=== PATIENT | male | born 2000 | race Caucasian/White ===

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

== ENCOUNTER → 2020-10-06 | Outpatient (CLI) | payer OTHER ==
--- NOTE | 2020-10-07 08:31 | MR ---
MRI CERVICAL SPINE: CLINICAL HISTORY: Headache with neck pain at least 8 months into right arm. TECHNIQUE: Multiplanar, multisequence imaging of the cervical spine is performed without and with IV contrast, 9.5 cc of gadolinium was given intravenously. COMPARISON: None. FINDINGS: Slight motion artifact degradation is present. Sagittal images of the cervical spine show t he craniocervical junction to appear within normal limits. The cervical and upper thoracic spinal co rd is normal in course, caliber, and signal. Vertebral alignment is anatomic. The vertebral body an d intravertebral disk heights are normal. The bone marrow signal intensity is within normal limits. No suspicious postcontrast enhancement is seen. Axial images show there is no significant focal disk disease, spinal canal stenosis, neural foraminal narrowing, or spinal cord compromise at any cervical level. IMPRESSION: Negative MRI of the cervical spine, no significant abnormality is seen to account for raeann rony's clinical symptoms.
== END | disposition home or self-care (01) ==
LOC: RADMRIMAIN 18:47
PROVIDERS: ATTEND Nurse Practitioner Adult Health
DX: M54.12 Radiculopathy, cervical region (principal)
CPT/HCPCS: 72156; A9585

== ENCOUNTER 2021-10-16 05:10 | Emergency (ER) | payer OTHER ==
[2021-10-16] MEDS ORDERED: ONDANSETRON 4 MG/2 ML VIAL IVP STA (05:25)
[2021-10-16] MEDS ORDERED: SODIUM CHLORIDE 0.9% 1,000 ML IV STA ×2 (05:25)
[2021-10-16] MEDS ORDERED: ACETAMINOPHEN IV (For NPO) 1,000 MG in EMPTY BAG 1 BAG IVPB STA (05:27)
[2021-10-16] MEDS ORDERED: KETOROLAC 15 MG/ML 1 ML VIAL IVP STA (05:27)
--- NOTE | 2021-10-16 05:29 | ED ---
Nausea/Vomiting/Diarrhea HPI - General Chief complaint: Nausea/Vomiting/Diarrhea Stated complaint: Vomiting Time Seen by Provider: 10/16/21 05:25 Source: patient, family, RN notes reviewed, old records reviewed Mode of arrival: ambulatory Limitations: no limitations - History of Present Illness Initial comments: This is a 21-year-old male to the emergency room today. Patient Dese for evaluation regards to not feeling well persistent nausea vomiting severe sweating severe vomiting generalized pain bodyaches and pains. No travel history or sick contacts. Patient did work out yesterday but a normal workout started PG around midnight his been previously persistently since. Patient does not exhibit fever or known ulcer the family has been sick. Patient has had appendix surgery but no other complaints MD complaint: nausea, vomiting, abdominal pain, other (Diaphoresis) -: hour(s) Description of Vomiting: watery Associated Abdominal Pain: Yes Location: diffuse, RUQ, RLQ, flank Severity: moderate Severity scale (1-10): 6 Quality: stabbing, aching Consistency: constant Improves with: none Worsens with: none Context: history of abdominal surgery (appendix yrs ago) Associated Symptoms: loss of appetite, malaise, nausea/vomiting, weakness - Related Data Home Medications Medication Instructions Recorded Confirmed Venlafaxine HCl ER [Effexor Xr] 37.5 mg PO DAILY 10/16/21 10/16/21 Allergies Allergy/AdvReac Type Severity Reaction Status Date / Time No Known Allergies Allergy Verified 10/16/21 07:02 Review of Systems ROS Statement: Those systems with pertinent positive or pertinent negative responses have been documented in the HPI. ROS Other: All systems not noted in ROS Statement are negative. Past Medical History Past Medical History: No Reported History Additional Past Medical History / Comment(s): left clavicle fracture, right femur fracture, left wrist fracture, left ankle fracture; MONONUCLEOSIS SUMMER 2013 History of Any Multi-Drug Resistant Organisms: None Reported Past Surgical History: Appendectomy Additional Past Surgical History / Comment(s): open reduction left ankle fracture. Past Psychological History: Anxiety Past Alcohol Use History: None Reported Past Drug Use History: None Reported, Marijuana - Past Family History Mother Family Medical History: Hypertension General Exam - General Exam Comments Initial Comments: diaphoretic Limitations: no limitations General appearance: anxious Head exam: Present: atraumatic, normocephalic, normal inspection Eye exam: Present: normal appearance, PERRL, EOMI. Absent: scleral icterus, conjunctival injection, periorbital swelling ENT exam: Present: normal exam, mucous membranes moist Neck exam: Present: normal inspection. Absent: tenderness, meningismus, lymphadenopathy Respiratory exam: Present: normal lung sounds bilaterally. Absent: respiratory distress, wheezes, rales, rhonchi, stridor Cardiovascular Exam: Present: regular rate, normal rhythm, normal heart sounds. Absent: systolic murmur, diastolic murmur, rubs, gallop, clicks GI/Abdominal exam: Present: soft, normal bowel sounds. Absent: distended, tenderness, guarding, rebound, rigid Extremities exam: Present: normal inspection, full ROM, normal capillary refill. Absent: tenderness, pedal edema, joint swelling, calf tenderness Back exam: Present: normal inspection Neurological exam: Present: alert, oriented X3, CN II-XII intact Psychiatric exam: Present: normal affect, normal mood Skin exam: Present: warm, dry, intact, normal color. Absent: rash Course Vital Signs 10/16/21 10/16/21 10/16/21 05:11 06:04 06:16 Temperature 98.3 F Pulse Rate 83 66 Respiratory 20 16 Rate Blood Pressure 137/82 110/56 O2 Sat by Pulse 98 98 Oximetry - Reevaluation(s) Reevaluation #1: 10/16/21 05:29 Medical record is reviewed Medical Decision Making - Lab Data Result diagrams: 10/16/21 05:28 10/16/21 05:28 Lab Results 10/16/21 10/16/21 10/16/21 Range/Units 05:28 05:28 05:28 WBC 10.6 (3.8-10.6) k/uL RBC 4.81 (4.30-5.90) m/uL Hgb 16.0 (13.0-17.5) gm/dL Hct 47.1 (39.0-53.0) % MCV 97.9 (80.0-100.0) fL MCH 33.2 (25.0-35.0) pg MCHC 33.9 (31.0-37.0) g/dL RDW 12.5 (11.5-15.5) % Plt Count 224 (150-450) k/uL MPV 7.2 Neutrophils % 88 % Lymphocytes % 6 % Monocytes % 3 % Eosinophils % 2 % Basophils % 1 % Neutrophils # 9.3 H (1.3-7.7) k/uL Lymphocytes # 0.6 L (1.0-4.8) k/uL Monocytes # 0.4 (0-1.0) k/uL Eosinophils # 0.2 (0-0.7) k/uL Basophils # 0.1 (0-0.2) k/uL PT (9.0-12.0) sec INR (<1.2) APTT (22.0-30.0) sec Sodium 138 (137-145) mmol/L Potassium 3.9 (3.5-5.1) mmol/L Chloride 106 (98-107) mmol/L Carbon Dioxide 23 (22-30) mmol/L Anion Gap 9 mmol/L BUN 23 H (9-20) mg/dL Creatinine 1.03 (0.66-1.25) mg/dL Est GFR (CKD-EPI)AfAm >90 (>60 ml/min/1.73 sqM) Est GFR (CKD-EPI)NonAf >90 (>60 ml/min/1.73 sqM) Glucose 141 H (74-99) mg/dL Plasma Lactic Acid Kwesi 2.3 H* (0.7-2.0) mmol/L Calcium 9.0 (8.4-10.2) mg/dL Phosphorus 2.8 (2.5-4.5) mg/dL Magnesium 1.8 (1.6-2.3) mg/dL Total Bilirubin 1.2 (0.2-1.3) mg/dL AST 37 (17-59) U/L ALT 26 (4-49) U/L Alkaline Phosphatase 118 (38-126) U/L Lactate Dehydrogenase 437 (313-618) U/L Creatine Kinase 229 H (55-170) U/L Troponin I (0.000-0.034) ng/mL C-Reactive Protein 0.8 (<1.0) mg/dL Total Protein 7.5 (6.3-8.2) g/dL Albumin 4.7 (3.5-5.0) g/dL Lipase 241 (23-300) U/L 10/16/21 10/16/21 Range/Units 05:28 05:35 WBC (3.8-10.6) k/uL RBC (4.30-5.90) m/uL Hgb (13.0-17.5) gm/dL Hct (39.0-53.0) % MCV (80.0-100.0) fL MCH (25.0-35.0) pg MCHC (31.0-37.0) g/dL RDW (11.5-15.5) % Plt Count (150-450) k/uL MPV Neutrophils % % Lymphocytes % % Monocytes % % Eosinophils % % Basophils % % Neutrophils # (1.3-7.7) k/uL Lymphocytes # (1.0-4.8) k/uL Monocytes # (0-1.0) k/uL Eosinophils # (0-0.7) k/uL Basophils # (0-0.2) k/uL PT 12.0 (9.0-12.0) sec INR 1.1 (<1.2) APTT 22.3 (22.0-30.0) sec Sodium (137-145) mmol/L Potassium (3.5-5.1) mmol/L Chloride (98-107) mmol/L Carbon Dioxide (22-30) mmol/L Anion Gap mmol/L BUN (9-20) mg/dL Creatinine (0.66-1.25) mg/dL Est GFR (CKD-EPI)AfAm (>60 ml/min/1.73 sqM) Est GFR (CKD-EPI)NonAf (>60 ml/min/1.73 sqM) Glucose (74-99) mg/dL Plasma Lactic Acid Kwesi (0.7-2.0) mmol/L Calcium (8.4-10.2) mg/dL Phosphorus (2.5-4.5) mg/dL Magnesium (1.6-2.3) mg/dL Total Bilirubin (0.2-1.3) mg/dL AST (17-59) U/L ALT (4-49) U/L Alkaline Phosphatase (38-126) U/L Lactate Dehydrogenase (313-618) U/L Creatine Kinase (55-170) U/L Troponin I <0.012 (0.000-0.034) ng/mL C-Reactive Protein (<1.0) mg/dL Total Protein (6.3-8.2) g/dL Albumin (3.5-5.0) g/dL Lipase (23-300) U/L - EKG Data -: EKG Interpreted by Me (EKG shows sinus rhythm 68 ID 164 QRS 87 QTC 420) Disposition Clinical Impression: Dehydration, Nausea and vomiting, Gastritis Disposition: [facility] Instructions (If sedation given, give patient instructions): Acute Nausea and Vomiting (ED) Is patient prescribed a controlled substance at d/c from ED?: No Referrals: Cristina Sandoval NPC [Primary Care Provider] - 1-2 days
[2021-10-16 05:39] LABS: Basophils # (A) 0.1 k/uL (0-0.2); Basophils % (A) 1 %; Eosinophils # (A) 0.2 k/uL (0-0.7); Eosinophils % (A) 2 %; HCT 47.1 % (39.0-53.0); Lymphocytes # (A) 0.6 k/uL (1.0-4.8); Lymphocytes % (A) 6 %; MCH 33.2 pg (25.0-35.0); MCHC 33.9 g/dL (31.0-37.0); MCV 97.9 fL (80.0-100.0); Mean Platelet Volume 7.2; Monocytes # (A) 0.4 k/uL (0-1.0); Monocytes % (A) 3 %; Neutrophils # (A) 9.3 k/uL (1.3-7.7); Neutrophils % (A) 88 %; Platelet Count 224 k/uL (150-450); RBC 4.81 m/uL (4.30-5.90); RDW 12.5 % (11.5-15.5); WBC 10.6 k/uL (3.8-10.6)
[2021-10-16 05:57] LABS: ALT 26 U/L (4-49); AST 37 U/L (17-59); African American GFR (CKD) >90 (>60 ml/min/1.73 sqM); Albumin 4.7 g/dL (3.5-5.0); Alkaline Phosphatase 118 U/L (38-126); Anion Gap 9 mmol/L; Blood Urea Nitrogen 23 mg/dL (9-20); C Reactive Protein 0.8 mg/dL (<1.0); Carbon Dioxide 23 mmol/L (22-30); Chloride 106 mmol/L (98-107); Creatine Kinase 229 U/L (55-170); Glucose 141 mg/dL (74-99); LDH 437 U/L (313-618); Lipase 241 U/L (23-300); Magnesium 1.8 mg/dL (1.6-2.3); Non-African American GFR(CKD) >90 (>60 ml/min/1.73 sqM); Phosphorus 2.8 mg/dL (2.5-4.5); Potassium 3.9 mmol/L (3.5-5.1); Sodium 138 mmol/L (137-145); Total Bilirubin 1.2 mg/dL (0.2-1.3); Total Protein 7.5 g/dL (6.3-8.2)
[2021-10-16 05:58] LABS: INR 1.1 (<1.2); Partial Thromboplastin Time 22.3 sec (22.0-30.0)
[2021-10-16 06:04] VITALS: TEMP 98.3
[2021-10-16 06:16] VITALS: BP 110/56; PULSE 66; RESP 16
[2021-10-16] MEDS ORDERED: PROCHLORPERAZINE INJ 10 MG/2 ML VIAL IVP STA (06:58)
[2021-10-16] MEDS ORDERED: ONDANSETRON 4 MG ODT STARTER PACK 2 TAB BTL PO STA (06:58)
--- NOTE | 2021-10-16 07:04 | CT ---
EXAM: CT Abdomen and Pelvis Without Intravenous Contrast CLINICAL HISTORY: ITS.REASON CT Reason: pain TECHNIQUE: Axial computed tomography images of the abdomen and pelvis without intravenous contrast. CTDI is 9.27 mGy and DLP is 546.3 mGy-cm. This CT exam was performed using one or more of the following dose reduction techniques: automated exposure control, adjustment of the mA and/or kV according to patient size, and/or use of iterative reconstruction technique. COMPARISON: 05/29/2014. FINDINGS: Limited noncontrast study. Lung bases: Unremarkable. No mass. No consolidation. ABDOMEN: Liver: Unremarkable. Gallbladder and bile ducts: Unremarkable. No calcified stones. No ductal dilation. Pancreas: Unremarkable. No ductal dilation. Spleen: Unremarkable. No splenomegaly. Adrenals: Unremarkable. No mass. Kidneys and ureters: No hydronephrosis. Stomach and bowel: Unremarkable. No obstruction. No mucosal thickening. PELVIS: Appendix: Surgically absent. Bladder: Mild wall thickening of the urinary bladder. Reproductive: Unremarkable as visualized. ABDOMEN and PELVIS: Intraperitoneal space: Multiple phleboliths noted in the pelvis.. No free air. No significant fluid collection. Bones/joints: No acute fracture. No dislocation. Soft tissues: Unremarkable. Vasculature: Unremarkable. No abdominal aortic aneurysm. Lymph nodes: Unremarkable. No enlarged lymph nodes. IMPRESSION: Mild wall thickening of the urinary bladder, correlation for cystitis recommended Multiple phleboliths are noted in the pelvis. No hydronephrosis seen to suggest distal obstructing stone.
[2021-10-16 07:22] LABS: Appearance,Urine Clear (Clear); Bilirubin,Urine Negative (Negative); Blood,Urine Negative (Negative); Color,Urine Yellow; Glucose,Urine (UA) Negative (Negative); Ketones,Urine Trace (Negative); Leukocyte Esterase,Urine Negative (Negative); Nitrite,Urine Negative (Negative); Protein,Urine Trace (Negative); Urobilinogen,Urine <2.0 mg/dL (<2.0)
== END 2021-10-16 07:19 ==
LOC: EC 05:10
DX: K29.70 Gastritis, unspecified, without bleeding (principal); E86.0 Dehydration; F41.9 Anxiety disorder, unspecified; F12.90 Cannabis use, unspecified, uncomplicated; Z90.49 Acquired absence of other specified parts of digestive tract
CPT/HCPCS: 99284; 96374; 96375 ×3; 96361 ×2; 36415; 80053; 82550; 83605; 83615; 83690; 83735; 84100; 84484; 85025; 85610; 85730; 86140; 81003; 74176; J0780; J2405; J0131; J1885; S0119

== ENCOUNTER 2022-06-08 12:05 | Emergency (ER) | payer OTHER ==
[2022-06-08 12:13] VITALS: BP 146/82; PULSE 72; RESP 20
--- NOTE | 2022-06-08 12:25 | ED ---
General Adult HPI - General Chief complaint: Extremity Problem,Nontraumatic Stated complaint: lt ankle injury Time Seen by Provider: 06/08/22 12:11 Source: patient Mode of arrival: ambulatory Limitations: no limitations - History of Present Illness Initial comments: Dictation was produced using boo-box dictation software. please excuse any grammatical, word or spelling errors. Chief Complaint: 21-year-old male presents to emergency department for left ankle pain History of Present Illness: 21-year-old male his past medical history of left ankle fracture,, located by issues with bone fragments in the cartilage and issues with hardware difficulties. Patient states that he was at a conference 2 days ago. He denies any trauma to the ankle he is walking around more than usual. Patient states that after filling his ankles significantly tender. Patient states he is able to walk but with a limp. Denies any fever, chills or night sweats. No numbness and paresthesias to the distal extremity The ROS documented in this emergency department record has been reviewed and confirmed by me. Those systems with pertinent positive or negative responses have been documented in the HPI. All other systems are other negative and/or noncontributory. PHYSICAL EXAM: General Impression: Alert and oriented x3, not in acute distress HEENT: Normocephalic atraumatic, extra-ocular movements intact, pupils equal and reactive to light bilaterally, mucous membranes moist. Cardiovascular: Heart regular rate and rhythm Chest: Able to complete full sentences, no retractions, no tachypnea Musculoskeletal: no peripheral edema Left ankle: Swelling around the lateral malleolus with mild erythema, surgical site clean dry and intact Motor: no focal deficits noted Neurological: CN II-XII grossly intact, no focal motor or sensory deficits noted Skin: Intact with no visualized rashes Psych: Normal affect and mood ED course: 21-year-old male presents to emergency Department with atraumatic left ankle pain. Patient's history of multiple surgeries to that area. Vital signs upon arrival are within acceptable limits. X-rays unremarkable. Patient reevaluated bedside at 1:20 PM found to be stable medical condition. Patient will be discharged. Patient given outpatient follow-up with local orthopedic surgeon. He states that he had this procedure done [facility] and has not followed up with surgeon in several years. - Related Data Home Medications Medication Instructions Recorded Confirmed Venlafaxine HCl ER [Effexor Xr] 37.5 mg PO DAILY 10/16/21 10/16/21 Allergies Allergy/AdvReac Type Severity Reaction Status Date / Time No Known Allergies Allergy Verified 06/08/22 12:13 Review of Systems ROS Statement: Those systems with pertinent positive or pertinent negative responses have been documented in the HPI. ROS Other: All systems not noted in ROS Statement are negative. Past Medical History Past Medical History: No Reported History Additional Past Medical History / Comment(s): left clavicle fracture, right femur fracture, left wrist fracture, left ankle fracture; MONONUCLEOSIS SUMMER 2013 History of Any Multi-Drug Resistant Organisms: None Reported Past Surgical History: Appendectomy Additional Past Surgical History / Comment(s): open reduction left ankle fracture. Past Psychological History: Anxiety Smoking Status: Never smoker Past Alcohol Use History: Occasional Past Drug Use History: Marijuana - Past Family History Mother Family Medical History: Hypertension General Exam Limitations: no limitations Course Vital Signs 06/08/22 06/08/22 12:11 12:13 Temperature 98.2 F Pulse Rate 72 Respiratory 20 Rate Blood Pressure 146/82 O2 Sat by Pulse 100 Oximetry Disposition Clinical Impression: Ankle pain Disposition: HOME SELF-CARE Condition: Good Instructions (If sedation given, give patient instructions): Swollen Joint (ED) Is patient prescribed a controlled substance at d/c from ED?: No Referrals: Marcela Gastelum DO [Doctor of Osteopathic Medicine] - 1-2 days Time of Disposition: 13:22
[2022-06-08 12:31] VITALS: TEMP 98.2
--- NOTE | 2022-06-08 14:29 | XR ---
EXAMINATION TYPE: TEMPORARY DATE OF EXAM: 06/08/2022 COMPARISON: None HISTORY: Left ankle pain TECHNIQUE: Three-view left ankle FINDINGS: There is soft tissue swelling over the lateral malleolus. Near the distal fibula very subtl e linear density is present. A radiopaque foreign body could be considered. Avulsion is considered le ss likely. The ankle mortise appears intact. No acute osseous abnormalities radiographically apparent . No acute fractures identified. Follow-up can be performed as clinically indicated. IMPRESSION: 1. Soft tissue swelling lateral malleolus. Very tiny linear radiopaque foreign body may be within th e soft tissue. A donor site is not identified. Avulsion or foreign body could be considered in the di fferential.
== END 2022-06-08 13:43 | disposition home or self-care (01) ==
LOC: EC 12:05
DX: M25.572 Pain in left ankle and joints of left foot (principal); F41.9 Anxiety disorder, unspecified
CPT/HCPCS: 99283